=== PATIENT | female | born 1945 | race Caucasian/White ===

== ENCOUNTER → 2019-04-12 | Outpatient (CLI) | payer MEDICARE, OTHER ==
[~2019-04-12] MED LIST: ASPIRIN81 M2; ATENOLOL 100MG100 M2; CELEXA 20 MG TA20 M1; CENESTIN0.45 MG; GEMFIBROZIL 60600 MG; GLUCOPHAGE500 MG; LEVOTHROID125 MCG; LISINOPRIL10 MG PO; OMEPRAZOLE 20 M20 M1; OXYBUTYNIN 5 MG5 M1; PRAVACHOL80 MG
== END ==
LOC: M.RAD 13:35
DX: Z12.31 Encounter for screening mammogram for malignant neoplasm of breast (principal)